=== PATIENT | male | born 1955 | race Caucasian/White ===

== ENCOUNTER 2023-12-05 09:30 | Outpatient (AMB) | payer MEDICARE, OTHER, SELFPAY ==
--- NOTE | 2023-12-05 10:20 | MHC.OFFVIS ---
Intake Vital Signs 12/05/23 10:23 Height 5 ft 8 in Weight 154 lb 5.177 oz BMI 23.5 BP 132/68 Blood Pressure Location Lt brachial Position Sitting Pulse 42 L Intake Visit Reasons: CREW BOSS/ Rastigar/ abn stress test Intake Note: NPV w/ EKG Auto Damage Appraiser Required: No Accompanied by: Spouse Allergies No Known Allergies Allergy (Verified 12/05/23 10:24) Medication List - Last Reconciled 12/05/23 by Eron Lu MD No Known Home Meds HPI HPI Comments History of Present Illness Details Jose A is here for consultation regarding chest pain. He does not have any known coronary disease or myocardial infarction or cardiomyopathy. He is extremely active at baseline including a lot of hiking mountains extra. On lot of these occasions, he has had chest pain that feels like a pressure. It does not however happen every single time. He recently had a stress test and exercised for about 11 minutes. He did not have any anginal-type symptoms but there was concern for ST depression. Hence he has been referred here. Otherwise, generally healthy at baseline with no limitations whatsoever. History of cocaine use many decades ago but nothing recent. [facility] Surgical History (Updated 12/05/23 @ 10:24 by Gaby Watson) Hx of total knee replacement Family History (Updated 12/05/23 @ 10:47 by Eron Lu MD) Mother Heart problem Father Heart problem Hx of CABG Social History (Updated 12/05/23 @ 10:25 by Gaby Watson) Alcohol intake: former Patient Tobacco Use Status: Former Tobacco user Review of Systems Const Denies chills, Denies daytime sleepiness, Denies fatigue, Denies fever(s), Denies frequent falls, Denies night sweats, Denies snoring, Denies weakness, Denies weight gain and Denies weight loss Eyes Denies loss of vision ENT Denies dizziness and Denies hearing loss Card Denies chest pain, Denies chest pain with activity, Denies syncope, Denies rapid heart rate, Denies edema, Denies claudication, Denies leg edema, Denies lightheadedness, Denies palpitations, Denies dyspnea, Denies dyspnea on exertion and Denies orthopnea Resp Denies cough, Denies excessive phlegm production, Denies dyspnea, Denies dyspnea on exertion, Denies snoring and Denies wheezing GI Denies abdominal pain, Denies hematochezia, Denies change in bowel habits, Denies change in stool character, Denies heartburn, Denies nausea and Denies vomiting Denies hematuria, Denies dysuria and Denies urinary frequency Musc Denies arthralgias, Denies muscle weakness, Denies numbness and Denies tingling Skin/Breast Denies nail changes and Denies rash Neuro Denies Abnormal speech present, Denies dizziness, Denies syncope, Denies frequent falls, Denies loss of vision, Denies memory loss, Denies numbness, Denies tingling and Denies weakness Psych Denies depression and Denies memory loss Endo Denies fatigue and Denies palpitations Aller/Immun Denies wheezing Physical Exam Vital Signs: Last Vital Signs Pulse 42 L 12/05/23 10:23 BP 132/68 12/05/23 10:23 BMI result Body Mass Index 23.5 Const General: comfortable and no acute distress Orientation/consciousness: patient oriented x3 HEENT Other: Unremarkable Head: Yes normal to inspection Neck Neck: Yes normal visual inspection Chest Chest palpation & inspection: normal inspection of the chest Resp Auscultation: clear to auscultation bilaterally Cardio Palpation: normal PMI Heart sounds: S1 normal heart sound present, S2 normal heart sound present, no gallops, no murmurs and no rubs GI Palpation (GI): Soft to palpation Back/Spine/Pelvis Other: unremarkable Skin General skin exam: no rashes or lesions noted Neuro General: patient oriented x3 Speech: No Abnormal speech present Extrem General: Yes normal to inspection Psych Mental Status: mental status grossly normal Office Procedures EKG Details: EKG with sinus bradycardia at 42/Min; can not exclude old anterior infarct but could be from body habitus and lead placement[place]. [address]-[id number], Complete Assessment & Plan Assessment & Plan (1) Precordial chest pain: Code(s): R07.2 - Precordial pain (2) Abnormal stress test: Code(s): R94.39 - Abnormal result of other cardiovascular function study Plan Baseline EKG shows sinus bradycardia which could be related to high levels of baseline physical activity. In the exercise stress test, he was able to do 11 minutes on Daniel protocol and reached 13.4 Mets. He was able to reach 100% of max predicted heart rate. No chest pain. Concern for horizontal to upsloping ST depression thought to be suggestive of ischemia. We discussed the findings above. Recommend proceeding with coronary CTA for further evaluation. Echocardiogram for cardiac function assessment. Advised to cut back on physical activity, especially strenuous hiking for the time being. Follow-up after the above. Discussed with significant other who came for appointment and they agree with the plan. Orders: Orders CT Cardiac Coronary Angio Today I25.10 - Atherosclerotic heart disease of [place] coronary artery without angina pectoris, R94.39 - Abnormal result of other cardiovascular function study CA echo transthoracic complete Today R07.2 - Precordial pain, R94.39 - Abnormal result of other cardiovascular function study Basic Metabolic Panel Today R07.2 - Precordial pain Coding Level of Care Code New Pt Level 4 (38185) Diagnoses Precordial chest pain R07.2 Abnormal stress test R94.39 CPT Codes EKG - CPT: 72820-[id number], Complete ([id number])
[2023-12-05 10:23] VITALS: BP 132/68; PULSE 42; BMI 23.5
== END 2023-12-05 10:57 | disposition home or self-care (01) ==
PROVIDERS: Visit Provider Internal Medicine
DX: R07.2 Precordial pain (principal); R94.39 Abnormal result of other cardiovascular function study
CPT/HCPCS: 93010; 99204

== ENCOUNTER → 2023-12-05 09:30 | Outpatient (BNVA) | payer MEDICARE, OTHER, SELFPAY | PROVIDERS: Visit Provider Internal Medicine | DX: R07.2 Precordial pain (principal); R94.39 Abnormal result of other cardiovascular function study | CPT/HCPCS: 93005; 99202 ==

== ENCOUNTER → 2023-12-25 13:29 | Outpatient (REF) | payer MEDICARE, OTHER, SELFPAY ==
--- NOTE | 2023-12-25 13:34 | CA_ITS ---
Transthoracic Echocardiogram Patient (Last, First, Middle): Jose A Negron E Gender: Male Date of : 1955 Age: 68 Procedure Date: 12/25/2023 Procedure Type: Transthoracic Echocardiogram Location: OP Height: 172.72 cm Weight: 65.77 kg BSA: 1.78 m2 Heart Rate: bpm BP: 116 / 60 mmHg Wood Crafter: Referring MD: Eron Lu MD City Plant Supervisor: Gama Cervantes MD Symptoms: R94.39 - Abnormal result of other cardiovascular function study Study Quality: Good ECG Rhythm: Sinus Conclusions: - 1. Normal LV ejection fraction of 60 65% with normal diastolic filling pattern 2. Slightly increased gradient across aortic valve with early mild aortic stenosis 3. Normal RV systolic pressure 4. No pericardial effusion Findings Left Ventricle Normal left ventricular size, thickness, and systolic function. The visually estimated ejection fraction is between 60-65%. Spectral Doppler is indicative of a normal filling pattern. E/E prime ratio is <8, consistent with normal filling pressures. Right Ventricle Normal right ventricular cavity size and systolic function. Atria Both atria are normal in size. There is no evidence of interatrial shunt. Aortic Valve Normal aortic valve structure and function. There is mild thickening of the aortic valve. There is no aortic valve stenosis. There is no aortic valve regurgitation. Mitral Valve There is mild anterior and posterior mitral leaflet thickening. There is trace mitral valve regurgitation. There is no mitral valve stenosis. Pulmonic Valve The pulmonic valve is likely normal. There is trace pulmonic valve regurgitation. Tricuspid Valve Normal tricuspid valve structure. There is trace tricuspid valve regurgitation. The right ventricular systolic pressure is normal. The right ventricular systolic pressure is 19 mmHg. Normal right atrial pressure. There is no evidence of pulmonary hypertension. Great Vessels The pulmonary artery was not well visualized. There is no dilatation of the ascending aorta measuring 3.20 cm. Venous The inferior vena cava is normal in size and collapses greater than 50% with inspiration. Pericardium/Pleural There is no evidence of pericardial effusion. Prior Study Comparison No prior study available for comparison. Measurements 2D Linear Measurements IVSd: 0.79 0.6-0.9/0.6-1.0 cm LVIDd: 4.45 3.9-5.3/4.2-5.9 cm LVIDd Index: 2.50 2.4-3.2/2.2-3.1 cm/m2 LVIDs: 2.87 2.0-3.6 cm LVPWd: 1.00 0.7-1.1 cm Ao Root: 2.90 2.1-3.5 cm LA Diam: 3.40 2.7-3.8/3.0-4.0 cm LAIDs Index: 1.91 1.5-2.3 cm/m2 LV Mass: 161.29 67-162/88-224 g LV Mass Index: 90.61 43-95/49-115 g/m2 LVOT Diam: 2.10 3.0+(-)1.3 cm Mitral Valve MV Pk E: 0.74 MV PK A: 0.56 MV Decel Time: 270.00 E/A: 1.30 E'Lateral: 14.90 E'Medial: 8.16 E/E' Med: 9.10 E/E' Lat: 5.00 PHT: 79.00 MVA PHT: 2.78 Decel Quay: 2.74 Aortic Valve AoV Pk Cristian: 1.88 AoV Mn Cristian: 1.06 AoV VTI: 0.43 AoV Pk Grad: 14.00 Aov Mn Grad: 6.00 TITO Cont.VTI: 2.28 LVOT LVOT Pk Cristian: 1.23 LVOT Mn Cristian: 0.80 LVOT VTI: 0.28 LVOT Pk Grad: 6.00 LVOT Mn Grad: 3.00 LVOT Diam: 2.10 LVOT Area: 3.46 Diastolic Function MV Pk E: 0.74 MV Pk A: 0.56 E/A: 1.30 E'Medial: 8.16 E/E' Med: 9.10 E' Laterial: 14.90 E/E' Lat: 5.00 Right Ventricle TAPSE (mm): 33.00 TVS' Cristian: 13.00 Tricuspid Valve TR Pk Cristian: 2.00 TR Pk Grad: 16.00 RA Press: 3.00 RVSP: 19.00 Great Vessels Aorta Ao Root-2D: 2.90 2.0-3.7 cm Ao Asc: 3.20 2.1-3.4 cm Pulmonary Valve PV Pk Cristain: 1.30 Peak PV Grad: 7.00 Updated in Other Vendor System with Status of Final Gama Cervantes MD electronically signed on 12/25/2023 3:34:59 PM with status of Final
== END ==
LOC: HO.CARD 13:29
PROVIDERS: Visit Provider Internal Medicine
DX: R07.2 Precordial pain (principal); R94.39 Abnormal result of other cardiovascular function study
CPT/HCPCS: 93306

== ENCOUNTER → 2023-12-25 13:34 | Outpatient (BNV) | payer MEDICARE, OTHER, SELFPAY | PROVIDERS: Visit Provider Internal Medicine Cardiovascular Disease | DX: I35.0 Nonrheumatic aortic (valve) stenosis (principal) | CPT/HCPCS: 93306 ==

== ENCOUNTER 2024-03-30 13:11 | Outpatient (AMB) | payer MEDICARE, OTHER, SELFPAY ==
[2024-03-30 13:23] VITALS: BP 122/62; PULSE 48; BMI 22.8
--- NOTE | 2024-03-30 13:23 | MHC.OFFVIS ---
Vital Signs 03/30/24 13:23 Height 5 ft 8 in Weight 149 lb 14.629 oz BMI 22.8 BP 122/62 Blood Pressure Location Lt brachial Position Sitting Pulse 48 L Pulse Source Pulse Oximeter Intake Visit Reasons: F/up CTA/ECHO Allergies No Known Allergies Allergy (Verified 12/05/23 10:24) Medication List - Last Reconciled 03/30/24 by Eron Lu MD No Known Home Meds HPI Comments Details: Jose A returns for follow-up. Recently seen in consultation regarding chest pain. No known cardiac issues. Extremely active at baseline with lot of hiking, climbing mountains extra. During these times, he has felt some chest pain and that led to further workup. He has completed a stress test as well as coronary CTA. No new concerns. He states feels good. Otherwise, generally healthy at baseline with no limitations whatsoever. History of cocaine use many decades ago but nothing recent. [facility] Surgical History (Updated 12/05/23 @ 10:24 by Gaby Watson) Hx of total knee replacement Family History (Updated 12/05/23 @ 10:47 by Eron Lu MD) Mother Heart problem Father Heart problem Hx of CABG Social History (Updated 12/05/23 @ 10:25 by Gaby Watson) Alcohol intake: former Patient Tobacco Use Status: Former Tobacco user Review of Systems Const Denies weakness ENT Denies dizziness Card Denies chest pain, Denies chest pain with activity, Denies syncope, Denies rapid heart rate, Denies pedal edema, Denies edema, Denies leg edema, Denies lightheadedness, Denies palpitations, Denies dyspnea, Denies dyspnea on exertion and Denies orthopnea Resp Denies cough, Denies dyspnea and Denies dyspnea on exertion GI Denies hematochezia and Denies change in stool character Musc Denies abnormal gait, Denies muscle cramps, Denies muscle weakness, Denies numbness, Denies radiating pain into limb and Denies tingling Neuro Denies abnormal gait, Denies dizziness, Denies syncope, Denies numbness, Denies tingling and Denies weakness Endo Denies palpitations Physical Exam Vital Signs: Last Vital Signs Pulse 48 L 03/30/24 13:23 BP 122/62 03/30/24 13:23 BMI result Body Mass Index 22.8 Const General: comfortable and no acute distress Orientation/consciousness: patient oriented x3 HEENT Other: Unremarkable Head: Yes normal to inspection Neck Neck: Yes normal visual inspection Chest Chest palpation & inspection: normal inspection of the chest Resp Auscultation: clear to auscultation bilaterally Cardio Palpation: normal PMI Heart sounds: S1 normal heart sound present, S2 normal heart sound present, no gallops, no murmurs and no rubs GI Palpation (GI): Soft to palpation Back/Spine/Pelvis Other: unremarkable Skin General skin exam: no rashes or lesions noted Neuro General: patient oriented x3 Extrem General: Yes normal to inspection Psych Mental Status: mental status grossly normal Assessment & Plan Assessment & Plan (1) Precordial chest pain: Code(s): R07.2 - Precordial pain Category: Medical (2) Abnormal stress test: Code(s): R94.39 - Abnormal result of other cardiovascular function study Category: Medical Plan Cardiac studies reviewed. Baseline EKG shows sinus bradycardia which could be related to high levels of baseline physical activity. In the exercise stress test, he was able to do 11 minutes on Daniel protocol and reached 13.4 Mets. He was able to reach 100% of max predicted heart rate. No chest pain. Concern for horizontal to upsloping ST depression thought to be suggestive of ischemia. In the echocardiogram, LVEF 60-65%. Gradients across aortic valve elevated and thought to reflect early stenosis but he also has a high stroke volume because of bradycardia- hence elevated gradients are most likely from high stroke volumes. In the coronary CTA, calcium score is 0. Possible mild stenosis and circumflex versus artifactual finding. Distal LAD/1st diagonal limited by artifact but suspected patent. There is a question of thymic cyst versus pericardial cyst. Recommendation was to consider getting a chest MRI. Also, small lung nodule noted. Overall, based on the above, chest pain during hiking are highly unlikely to be cardiac in nature. We discussed the findings in great detail with patient and significant other. They understand. Hence no further workup from coronary standpoint. With regard to the question of thymic/pericardial cyst, we discussed about getting an MRI but then decided hold off for now. Even if these are present, unlikely that they causing any significant clinical issues. If necessary, can consider in the future. With regard to the lung nodule, they will discuss with primary care regarding a possible repeat CT in 1 year. Total time spent including review of data, counseling, documentation, coordination of care-32 minutes. Coding Level of Care Code Est Pt Level 4 (48248) Diagnoses Precordial chest pain R07.2 Abnormal stress test R94.39
== END 2024-03-30 13:50 | disposition home or self-care (01) ==
PROVIDERS: Visit Provider Internal Medicine
DX: R07.2 Precordial pain (principal); R94.39 Abnormal result of other cardiovascular function study
CPT/HCPCS: 99214

== ENCOUNTER → 2024-03-30 13:11 | Outpatient (BNVA) | payer MEDICARE, OTHER, SELFPAY | PROVIDERS: Visit Provider Internal Medicine | DX: R94.39 Abnormal result of other cardiovascular function study (principal); R07.2 Precordial pain | CPT/HCPCS: 99212 ==

== ENCOUNTER 2025-03-31 12:34 | Outpatient (AMB) | payer MEDICARE, OTHER, SELFPAY ==
--- OUTSIDE RECORDS SUMMARY | 2025-03-28 23:59 | XMS_ITS | Continuity of Care Document ---
Author Organization [facility] [place] [address] Address [address] [place] [id number]- Care Team Providers Care Customer Care Associate Name Role Phone Not on Staff, PCP Primary Care Physician Unavail able Encounter 03/27/25 - 03/28/[address] [id number] Attending Physician: Not on Staff, Attending MD Referring Physician: Not on Staff, Referring MD Encounter Type: [facility] Allergies, Adverse Reactions, Alerts No Known Allergies Immunizations Given and Recorded Vaccine Date Status Refusal Reason tetanus-diphtheria toxoids (Td) 11/06/22 Given pneumococcal 20-valent conjugate vaccine 11/06/22 Given influenza virus vaccine, inactivated 11/01/20 Give n influenza virus vaccine, inactivated 10/09/18 Give n influenza virus vaccine, inactivated 10/05/16 Give n influenza virus vaccine, inactivated 09/13/14 Vahid rded Influenza Virus Vaccine (oldterm) 05/27/19 Recorde d zoster vaccine, inactivated 04/21/19 Recorded zoster vaccine, inactivated 01/22/19 Recorded tetanus/diphtheria/pertussis, acel(Tdap) 09/13/12 Recorded tetanus/diphtheria/pertussis, acel(Tdap) 1 12/05/11 Given Hepatitis A Adult Vaccine 06/13/11 Recorded Hepatitis A Adult Vaccine 12/12/10 Recorded pneumococcal 23-valent vaccine 07/14/10 Recorded 1Admin Note: [id number] given today. Medications amoxicillin 500 mg oral capsule 4 capsule = 2,000 mg, By Mouth, Every 24 hours, 0 Refills, Maintenance, 11/06/22 10:33:00 AM EST, Capsule, Partial fill upon patient request if the prescription is for a schedule II opioid drug. Start Date: 11/06/22 Status: Ordered Repeat number: 1 CeleBREX 200 mg oral capsule 1 capsule = 200 mg, By Mouth, Daily, # 30 capsule, 0 Refills, Maintenance, 07/31/22 6:48:00 AM EST,Capsule, Partial fill upon patient request if the prescription is for a schedule II opioid drug. Start Date: 07/31/22 Status: Ordered Quantity: 30.0 Unit: capsule Repeat number: 1 ketoconazole 2% topical cream 1 application, Topically, Daily, # 60 Gm, 5 Refills, Maintenance, 11/03/21 10:36:00 AM EST, Cream, [facility]/pharmacy #[id number], 1 application Topically Daily, 175, cm, 11/03/21 10:22:00 EST, Height Start Date: 11/03/21 Status: Ordered Quantity: 60.0 Unit: g Repeat number: 6 Viagra 50 mg oral tablet 1 tablet = 50 mg, By Mouth, Daily, 1 hour before sexual activity, # 30 tablet, 11 Refills, Maintenance, 11/06/22 10:29:00 AM EST, Tablet, [facility]/pharmacy #[id number], 175, cm, 11/06/22 10:13:00 EST, Height, 67.8, kg, 07/31/22 6:10:00 EST, Dry Weight Start Date: 11/06/22 Status: Ordered Quantity: 30.0 Unit: tablet Repeat number: 12 Vitamin B-12 100 mcg oral tablet 100 mcg, 1, tablet, By Mouth, Daily, Refills 0, Maintenance, 11/13/17 8:45:35 AM EDT Start Date: 11/13/17 Status: Ordered Repeat number: 1 Problem List Condition Confirmation Course Effective Dates Status Health Status Informant Benign hematuria Confirmed Active ED (erectile dysfunction) Confirmed Active Hepatitis B immune Confirmed Active Hiatal hernia Confirmed Active H/O colonoscopy 1 Confirmed Active History of left knee replacement Confirmed Active Intention tremor Confirmed Active OA (osteoarthritis) of knee Confirmed Active Left knee pain Confirmed Active H/O esophagogastroduodenoscopy 2 Confirmed Active Elevated PSA Confirmed Active Rhinitis Confirmed Active Sinus bradycardia Confirmed Active 1Colonoscopy 2009 normal, repeat 2019. 2E2009 negative barretts Results Radiology Reports * Exam Date Time Procedure Performing Provider Status 03/27/25 11:02 AM MR Prostate W+W/O Co ntrast 3D Reformat Auth (Verified) Notes: (MR Prostate W+W/O Contrast 3D Reformat) Reason For Exam: Elevated prostate specific antigen [PSA];Elevated prostate specific antigen [PSA] RESULT: MR Prostate W+W/O Contrast 3D Reformat [facility] VISIT NUMBER :[id number] Patient Name: Matthew Negron Date of : 1955 Date of Exam: 03-27-2025 Referring Physician: Alexey Mendoza [facility] [address] [place] [id number] Exam: MR Prostate (C-/C+) with 3D reformat CPT 80292, 84992 Room Description: [facility] 3T MRI MR Prostate (C-/C+) with 3D reformat CPT 76633, 78629 REASON FOR EXAM: Male aged 69 years diagnosed with elevated PSA. Prostate biopsy date and results: No prior biopsy results available. Most recent PSA: 4.5 TECHNIQUE: Noncontrast and contrast-enhanced multiparametric MRI of the prostate gland was performed utilizing a body matrix coil and PROSTATE PROTOCOL. Dynamic pre- and postcontrast imaging was utilized. 7 cc of intravenous Elucirem contrast was administered. High resolution axial, sagittal, and coronal FSE T2, axial FSE T1, axial DWI, axial pre and multiphase dynamic postcontrast 3D FSPGR T1 pulse sequences were performed. Postprocessing on an independent workstation included creation of a 3D rotational prostate segmentation volume analysis, 3D lesion analysis, subtraction images, multiplanar reformatted images, wash-in and wash-out maps as well as computer aided detection (CAD) DynaCAD software. Findings are reported using Prostate Imaging Reporting and Data System (PI-RADS) version 2.1. COMPARISON: None available. FINDINGS: The prostate is normal in size and measures 4.5 x 3.4 x 3.1 cm. 3D processing calculated prostate volume is 26.2 cc. PERIPHERAL ZONE: There are no areas of T1 hyperintensity to suggest the presence of hemorrhage. Peripheral zone lesion #1: * Size: 1.9 x 1.3 x 2.1 cm. * Location: Right posterolateral portion of the peripheral zone at the base, mid gland, and apex, zone 2p/4p/6p (series 4 images 20). * Diffusion: Diffusion characteristics are described as focal markedly hypointense on ADC and hyperintense on high b-value DWI, 1.5 cm in greatest dimension correlating with a DWI-ADC score of 5. * T2-Weighted: Well-defined, homogenous moderately hypointense focus or mass confined to prostate and correlating with a T2W score of 5. * Perfusion: Positive dynamic contrast enhancement corresponding to suspicious findings on T2 and/or DWI-ADC. * Shortest distance from urethra: 0 cm. * Shortest distance from prostatic capsule: 0 cm. * Capsule: Broad capsular abutment with slight irregularity along the posterolateral mid gland and apex raising concern for early extraglandular disease (4:19, 20). * Overall suspicion: Category 5: Very High (Clinically significant cancer is highly likely to be present). TRANSITION ZONE: The transition zone is heterogeneous indicating benign prostatic hyperplasia. PROSTATE CAPSULE: Slight irregularity of the posterolateral gland margin of the mid gland and apex raises concern for early extraglandular disease. SEMINAL VESICLES: The seminal vesicles are normal. LYMPH NODES: No enlarged pelvic or inguinal lymph nodes. VESSELS: Major pelvic vessels demonstrate normal enhancement. URINARY BLADDER: Trabeculated urinary bladder wall, otherwise unremarkable. PELVIS: No free fluid. COLON AND RECTUM: Moderate stool burden throughout the colon. BONES: No suspicious osseous lesion. ADDITIONAL FINDINGS: None. IMPRESSION: 1. 2.1 cm right posterolateral peripheral zone lesion spanning the base to apex, with slight irregularity at the gland margin that may indicate early extraglandular disease. PI-RADS v2.1 Category 5: Very High (Clinically significant cancer is highly likely to be present). 2. No evidence of adenopathy or seminal vesicle invasion. No suspicious osseous lesion. 3. 3D processing calculated prostate volume is 26.2 cc. REFERENCE: PI-RADS Version 2.1 Assessment Categories: Category 1: Very low - Clinically significant cancer is highly unlikely. Category 2: Low - Clinically significant cancer is unlikely. Category 3: Intermediate - Clinically significant cancer is equivocal. Category 4: High - Clinically significant cancer is likely. Category 5: Very High - Clinically significant cancer is highly likely. PI-RADS Version 2.1 Definition of Clinically Significant Cancer: Tumor with a [place] score of 7 or more (either 4 + 3 or 3 + 4 with a prominent [place] 4 com?ponent) and/or volume greater than 0.5 cm3 and/or extraprostatic extension. Electronically Signed By: Luis May MD Dictated By: Not on Staff , OMAR OLVERA Dictated Date/Time: 03/27/25 4:05 pm Reviewed By: Not on Staff , OMAR OLVERA Signed By: Not on Staff , OMAR OLVERA Signed Date/Time: 03/27/25 4:05 pm Transcribed By: TS Transcribed Date/Time: 03/27/25 4:05 pm Social History Social History Type Response Smoking Status Former smoker; Other : Quit smoking age 41; entered on: 10/05/16 Sex Sex Representation Male (finding) Patient Care team information Care Team Personnel Name: Not on Staff, PCP Position: [facility] Physician (General Medicine) Member Role: PCP Name: Gemma Pierre RN Position: S RN Member Role: Primary Care Nurse Care Team Related Persons Name: KAMINICRISTIANA EDWARDS Insurance Providers Guarantor name: MATTHEW NEGRON [facility] [facility] Information #: 1 Payer: MEDICARE B Payer Identifier: MICHELLE Member Number: [id number] Group Number: MICHELLE Subscriber Identifier: [id number] Relationship to Subscriber: self Coverage Type: NA Coverage Verification Date: NA Telecom: NA Address: Health Plan Information #: 2 Payer: [facility] [employer] Payer Identifier: MICHELLE Member Number: [id number] Group Number: [id number] Subscriber Identifier: [id number] Relationship to Subscriber: spouse Coverage Type: Commercial Indemnity Coverage Verification Date: Telecom: Address:
--- NOTE | 2025-03-31 12:54 | MHC.OFFVIS ---
Vital Signs 03/31/25 12:56 Height 5 ft 8 in Weight 148 lb BMI 22.5 BP 126/60 Blood Pressure Location Lt brachial Position Sitting Pulse 51 Pulse Source Monitor Intake Visit Reasons: 1 yr f/up Allergies No Known Allergies Allergy (Verified 12/05/23 10:24) Medication List - Last Reconciled 03/31/25 by Eron Lu MD No Known Home Meds HPI Comments Details: Jose A returns for follow-up. Last year, seen in consultation regarding chest pain. No known cardiac issues. Extremely active at baseline with lot of hiking, climbing mountains extra. During these times, he has felt some chest pain and that led to further workup. He has completed a stress test as well as coronary CTA. Apparently, he has been diagnosed with prostate cancer and he is clearly disappointed with that. Otherwise, from the cardiac standpoint, no clear-cut symptoms. Continues to do a lot of intense hiking with no cardiac symptoms. [facility] Surgical History (Updated 12/05/23 @ 10:24 by Gaby Watson) Hx of total knee replacement Family History (Updated 12/05/23 @ 10:47 by Eron Lu MD) Mother Heart problem Father Heart problem Hx of CABG Social History (Updated 12/05/23 @ 10:25 by Gaby Watson) Alcohol intake: former Patient Tobacco Use Status: Former Tobacco user Review of Systems Const Denies weakness ENT Denies dizziness Card Denies chest pain, Denies chest pain with activity, Denies syncope, Denies rapid heart rate, Denies pedal edema, Denies edema, Denies leg edema, Denies lightheadedness, Denies palpitations, Denies dyspnea, Denies dyspnea on exertion and Denies orthopnea Resp Denies cough, Denies dyspnea and Denies dyspnea on exertion GI Denies hematochezia and Denies change in stool character Musc Denies abnormal gait, Denies muscle cramps, Denies muscle weakness, Denies numbness, Denies radiating pain into limb and Denies tingling Neuro Denies abnormal gait, Denies dizziness, Denies syncope, Denies numbness, Denies tingling and Denies weakness Endo Denies palpitations Physical Exam Vital Signs: Last Vital Signs Pulse 51 03/31/25 12:56 BP 126/60 03/31/25 12:56 BMI result Body Mass Index 22.5 Const General: comfortable and no acute distress Orientation/consciousness: patient oriented x3 HEENT Other: Unremarkable Head: Yes normal to inspection Neck Neck: Yes normal visual inspection Chest Chest palpation & inspection: normal inspection of the chest Resp Auscultation: clear to auscultation bilaterally Cardio Palpation: normal PMI Heart sounds: S1 normal heart sound present, S2 normal heart sound present, no gallops, no murmurs and no rubs GI Palpation (GI): Soft to palpation Back/Spine/Pelvis Other: unremarkable Skin General skin exam: no rashes or lesions noted Neuro General: patient oriented x3 Extrem General: Yes normal to inspection Psych Mental Status: mental status grossly normal Office Procedures EKG Details: EKG with underlying sinus bradycardia at 51/Min; cannot exclude old anterior infarct; [place] [address]-Mjyfrrnlwyweuneld, Complete Assessment & Plan Assessment & Plan (1) Precordial chest pain: Code(s): R07.2 - Precordial pain Category: Medical (2) Abnormal stress test: Code(s): R94.39 - Abnormal result of other cardiovascular function study Category: Medical Plan Cardiac studies reviewed. Baseline EKG shows sinus bradycardia which could be related to high levels of baseline physical activity. In the exercise stress test, he was able to do 11 minutes on Daniel protocol and reached 13.4 Mets. He was able to reach 100% of max predicted heart rate. No chest pain. Concern for horizontal to upsloping ST depression thought to be suggestive of ischemia. In the echocardiogram, LVEF 60-65%. Gradients across aortic valve elevated and thought to reflect early stenosis but he also has a high stroke volume because of bradycardia- hence elevated gradients are most likely from high stroke volumes. In the coronary CTA, calcium score is 0. Possible mild stenosis in circumflex versus artifactual finding. Distal LAD/1st diagonal limited by artifact but suspected patent. There is a question of thymic cyst versus pericardial cyst. Recommendation was to consider getting a chest MRI. Also, small lung nodule noted. Overall, based on the above, chest pain itself is noncardiac in nature. Additionally, he has not had any recent pains and hence no further coronary workup required. With regard to the question of thymic/pericardial cyst, recommendation was to get an MRI. Discussed about that again and he is willing to proceed. Hence MRI ordered. With regard to the lung nodule, advised follow up with PCP for recommendations. 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
[2025-03-31 12:56] VITALS: BP 126/60; PULSE 51; BMI 22.5
--- OUTSIDE RECORDS SUMMARY | 2025-03-31 13:08 | XMS_ITS | Continuity of Care Document ---
Author Name [facility] Organization [facility] Care Team Providers Care Staffing Clerk Name Role Phone [facility] Unavailable Unavailable Problems Combined list of problems from Department of Defense and Veterans Affairs facilities. It does not include entries that were removed or entered in error. Problem Status Onset Date Problem Type Date of Resolution Comments Source CHEST PAIN NOS Active Condition [facility] DEPRESSIVE DISORDER NEC Active Condition [facility] Gastroesophageal Reflux Disorder * (ICD-9-CM 530.81) Active Condition [facility] Hearing loss * (ICD-9-CM 389.9) Active Condition [facility] hepatitis c Active Condition [facility] Hepatitis C without mention of hepatic coma (ICD-9-CM 070.51) Active Condition [facility] methadone maintanance Active Condition [facility] Presbyopia * (ICD-9-CM 367.4) Active Condition [facility] Viral hepatitis B without mention of hepatic coma, without mention of hepatitis Active Condition [facility] Immunizations Combined list of available immunizations from the Department of Defense and Veterans Affairs facilities. Immunization Series Date Given Administered By Site Reaction Lot Number CVX Code Drug Tool Straightener Status Comments Source FLU,3 YRS (HISTORICAL) 2000 BLOSSOM NGUYEN 88 complet ed [facility] INFLUENZA, UNSPECIFIED FORMULATION 1996 BHARAT MENDOZA 88 complet ed [facility] INFLUENZA, UNSPECIFIED FORMULATION 1995 ENRIQUE BUCKNER 88 comple t ed [facility] Social History Combined list of available smoking, tobacco, and other social history from Department of Defense and Veterans Affairs facilities. Social History Type Response Date Comment Source Tobacco smoking status [facility] HISTORY OF SMOKING 09/27/2003 quit 8 years ago [facility] [place] [facility] History of tobacco use QUIT TOBACCO USE > 7 YEARS AGO 09/27/2003 quit 8 years [facility] [place] [facility] History of tobacco use NON-TOBACCO USER 07/29/2001 quit 7 years ago [facility] [place] [facility] History of tobacco use HISTORY OF SMOKING 05/27/2001 not smoked in past 5years [place] This section is an empty social history section. DoD
--- OUTSIDE RECORDS SUMMARY | 2025-03-31 13:10 | XMS_ITS ---
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 01/10/2024 Care Team Organization Name Specialty Phone Email Start Date End Da te [employer] [facility] [employer] Systems Adminstrator 01/13/2024 11/18/2024 [employer] PROVIDER SYSTEM Primary Care 12/10/2023
--- OUTSIDE RECORDS SUMMARY | 2025-03-31 13:10 | XMS_ITS | Clinical Summary ---
Author Organization [facility] Address [address] [place] [address] Care Team Providers Care Melt House Drag Operator Name Role Phone System, Provider Not In Primary Care Provider Un available Allergies No known active allergies Medications No known medications Social History Tobacco Use Types Packs/Day Years Used Date Smoking Tobacco: Never Assessed Sex and Gender Information Value Date Recorded Sex Assigned at Male 12/10/2023 12:01 PM EDT Legal Sex Male 9:23 AM EDT Gender Identity Male 12/10/2023 12:01 PM EDT Sexual Orientation Heterosexual (straight) 12/09 12:01 PM EDT Last Filed Vital Signs Vital Sign Reading Time Taken Comments Blood Pressure 159/74 01/24/2024 7:11 AM EDT Pulse 45 01/24/2024 7:11 AM EDT Temperature - - Respiratory Rate 18 01/24/2024 7:11 AM EDT Oxygen Saturation 100% 01/24/2024 7:11 AM EDT Inhaled Oxygen Concentration - - Weight - - Height - - Body Mass Index - - Plan of Treatment Health Maintenance Due Date Last Done Comments Hepatitis C Virus Screening 1956 DTaP/Tdap/Td Vaccines (1 - Tdap) 1975 Colonoscopy 2001 Pneumococcal Vaccines 50+ (1 of 1 - PCV) 2006 Zoster (Shingles) Vaccine (1 of 2) 2006 COVID-19 Vaccine ( - 2023-2 5 season) 2024 Influenza Vaccine 04/02/2025 RSV Vaccine 60 years and old er and Patients (1 - 1-dose 75+ series) 2031 Hepatitis B Vaccines Aged Out No long er eligible based on patient's age to complete this topic Insurance MEDICARE PART A & B [facility] Care Teams Melt House Drag Operator Relationship Specialty Start Date End Date System, Provider Not In PCP - General 12/10/23
--- OUTSIDE RECORDS SUMMARY | 2025-03-31 13:10 | XMS_ITS | Clinical Summary ---
Author Organization [facility] Address [address] [place] [id number] Phone Care Team Providers Care Cdl Dedicated Truck Driver Name Role Phone Gordon Roldan Primary Care Provider [phone] Encounters Date Type Department Care Team Description 02/24/2025 3:00 PM EDT - 02/24/2025 11:59 PM EDT Hospital Encounter [facility] Laboratory [address] [place] [address] Dominick Jones PA Discharge Disposition: Home or Self Care 02/24/2025 Transcribe Orders [facility] Laboratory [address] [place] [address] Dominick Jones PA Acute dermatitis (Primary Dx) from Last 3 Months Social History Tobacco Use Types Packs/Day Years Used Date Smoking Tobacco: Never Assessed Education Answer Date Recorded Are you interested in more education? Not on erika e 11/15/2023 Are you concerned about learning? Not on file 11/15/2023 No 11/15/2023 No 11/15/2023 Digital Access Answer Date Recorded No 11/15/2023 No 11/15/2023 Reliable internet access at home? Not on file 11/15/2023 Device with a working camera? Not on file Sex and Gender Information Value Date Recorded Sex Assigned at Not on file Legal Sex Male 10:35 PM EDT Gender Identity Not on file Sexual Orientation Not on file Last Filed Vital Signs Vital Sign Reading Time Taken Comments Blood Pressure 120/64 11/25/2023 10:27 AM EDT Pulse - - Temperature - - Respiratory Rate - - Oxygen Saturation - - Inhaled Oxygen Concentration - - Weight - - Height - - Body Mass Index - - Plan of Treatment Not on file Medical Devices Not on file Procedures Procedure Name Priority Date/Time Associated Diagnosis Comments ALANINE AMINOTRANSFERASE (ALT) Routine 02/24/2025 3:26 PM EDT Acute dermatitis ASPARTATE AMINOTRANSFERASE (AST) Routine 02/24/2025 3:26 PM EDT Acute dermatitis from Last 3 Months Results * Alanine aminotransferase (ALT) (02/24/2025 3:26 PM EDT) ALT 24 0 - 40 U/L [facility] Blood 02/24/2025 3:26 PM EDT 02/24/2025 3:36 PM EDT Dominick OSHEA LAB BLOOD ORDERABLE S Final Result Performing Organization Address [facility]/ZIP Co de Phone Number [address] [address] * Aspartate aminotransferase (AST) (02/24/2025 3:26 PM EDT) AST 27 0 - 37 U/L [facility] Blood 02/24/2025 3:26 PM EDT 02/24/2025 3:36 PM EDT Dominick OSHEA LAB BLOOD ORDERABLE S Final Result Performing Organization Address [facility]/ZIP Co de Phone Number [address] [address] from Last 3 Months Insurance MEDICARE PART A & B [facility] MEDICARE SUPPLEMENT MEDICARE PART A & B [facility] MEDICARE SUPPLEMENT MEDICARE PART A & B [facility] MEDICARE SUPPLEMENT MEDICARE PART A & B [facility] MEDICARE SUPPLEMENT MEDICARE PART A & B [facility] MEDICARE SUPPLEMENT MEDICARE PART A & B [facility] MEDICARE SUPPLEMENT Care Teams Cdl Dedicated Truck Driver Relationship Specialty Start Date End Date Gordon Roldan DO [address] [place] [address], [address] [place] [address] [email or web address] PCP - General Internal Medicine 11/15/23 Additional Source Comments The information contained in this document represents components of the legal health record. It is not the complete legal health record.[facility]
== END 2025-03-31 13:30 | disposition home or self-care (01) ==
LOC: HO.HCS 12:35
PROVIDERS: Visit Provider Internal Medicine
DX: R07.2 Precordial pain (principal); R94.39 Abnormal result of other cardiovascular function study
CPT/HCPCS: 93010; 99213

== ENCOUNTER → 2025-03-31 12:34 | Outpatient (BNVA) | payer MEDICARE, OTHER, SELFPAY | PROVIDERS: Visit Provider Internal Medicine | DX: R07.2 Precordial pain (principal); R94.39 Abnormal result of other cardiovascular function study; R94.31 Abnormal electrocardiogram [ECG] [EKG]; R00.1 Bradycardia, unspecified | CPT/HCPCS: 93005; 99212 ==

== ENCOUNTER → 2025-04-05 14:53 | Outpatient (BNV) | payer MEDICARE, OTHER, SELFPAY | PROVIDERS: Visit Provider Radiology Diagnostic Radiology | DX: J98.59 Other diseases of mediastinum, not elsewhere classified (principal) | CPT/HCPCS: 71552 ==

== ENCOUNTER 2025-04-05 14:54 | Outpatient (REF) | payer MEDICARE, OTHER, SELFPAY ==
--- NOTE | ~2025-04-05 | MR_ITS ---
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 TECHNIQUE: Sagittal T2, coronal T2 and STIR, and axial T2, fat-suppressed T2, in and out of phase gradient echo T1, and fat-suppressed T1 weighted MR images of the chest were obtained. Subsequently, axial and coronal fat-suppressed T1-weighted images were obtained after the intravenous demonstration of 7.5 mm Gadavist. COMPARISON: There are no prior studies available for comparison. FINDINGS: There is a 6.4 x 4.5 x 1.7 cm nonenhancing fluid signal intensity structure in the left anterior mediastinum overlying the origin of the pulmonary artery and the ventricles. This structure conforms to the cardiac contour is. There is no mediastinal or hilar lymphadenopathy. The chest wall is unremarkable. There is no axillary lymphadenopathy. The thoracic aorta is not dilated. The visualized bones are intact. Incidental note is made of tiny cysts in the liver. MR/MR chest wo/w con IMPRESSION: 6.4 x 4.5 x 1.7 cm cystic structure in the left anterior mediastinum. 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 Electronically signed by: Michael Rajan MD 04/05/2025 03:54 PM EDT
--- OUTSIDE RECORDS SUMMARY | 2025-04-05 14:56 | XMS_ITS | Continuity of Care Document ---
Author Name [facility] Organization [facility] Care Team Providers Care Spring Encaser Name Role Phone [facility] Unavailable Unavailable Problems Combined list of problems [...] Site Reaction Lot Number CVX Code Drug Race Starter Status Comments Source FLU,3 YRS (HISTORICAL) 2000 [...] Response Date Comment Source Tobacco smoking status [facility] HISTORY OF SMOKING 09/27/2003 quit 8 years ago [facility] [place] [place] [facility] History of tobacco use QUIT TOBACCO USE > 7 YEARS AGO 09/27/2003 quit 8 years [facility] [place] [facility] History of tobacco use NON-TOBACCO USER 07/29/2001 quit 7 years ago [facility] [place] [facility] History of tobacco use HISTORY OF SMOKING 05/27/2001 not smoked in past 5years [place] This section is an empty social history section. DoD
--- OUTSIDE RECORDS SUMMARY | 2025-04-05 14:57 | XMS_ITS | Clinical Summary ---
Author Organization [facility] Address [address] [place] [id number] Phone Care Team Providers Care Electron Beam Photo Mask Maker Name Role Phone Gordon Roldan Primary Care Provider [phone] Encounters Date Type Department Care Team Description 02/24/2025 3:00 PM EDT - 02/24/2025 11:59 PM EDT Hospital Encounter [facility] Laboratory [address] [place] [address] Dominick Jones PA Discharge Disposition: Home or Self Care 02/24/2025 Transcribe Orders [facility] Laboratory [address] [place] [address] Dominick Jones PA Acute dermatitis (Primary Dx) [...] EDT) ALT 24 0 - 40 U/L [facility] Blood 02/24/2025 3:26 PM EDT 02/24/2025 3:36 PM EDT Dominick OSHEA LAB BLOOD ORDERABLE S Final Result Performing Organization Address [facility]/ZIP Co de Phone Number [address] [address] * Aspartate aminotransferase (AST) (02/24/2025 3:26 PM EDT) AST 27 0 - 37 U/L [facility] Blood 02/24/2025 3:26 PM EDT 02/24/2025 3:36 PM EDT Dominick OSHEA LAB BLOOD ORDERABLE S Final Result Performing Organization Address [facility]/ZIP Co de Phone Number [address] [address] from Last 3 Months Insurance MEDICARE PART A & B [facility] MEDICARE SUPPLEMENT MEDICARE PART A & B [facility] MEDICARE SUPPLEMENT MEDICARE PART A & B [facility] MEDICARE SUPPLEMENT MEDICARE PART A & B [facility] MEDICARE SUPPLEMENT MEDICARE PART A & B [facility] MEDICARE SUPPLEMENT MEDICARE PART A & [facility] SUPPLEMENT Care Teams Electron Beam Photo Mask Maker Relationship Specialty Start Date End Date Gordon Roldan DO [address] [place] [address], [address] [place] [address] [email or web address] PCP - General Internal Medicine 11/15/23 Additional Source Comments The information contained in this document represents components of the legal health record. It is not the complete legal health record.[facility]
--- OUTSIDE RECORDS SUMMARY | 2025-04-05 14:57 | XMS_ITS | Clinical Summary ---
Author Organization [facility] Address [address] [place] [address] Care Team Providers Care Cosmetics Counter Manager Name Role Phone System, Provider Not In [...] topic Insurance MEDICARE PART A & B [facility] Care Teams Cosmetics Counter Manager Relationship Specialty Start Date End Date System, Provider Not In PCP - General 12/10/23
== END 2025-04-05 14:55 | disposition home or self-care (01) ==
LOC: HO.MRI 14:54
PROVIDERS: Visit Provider Internal Medicine
DX: E32.8 Other diseases of thymus (principal)
CPT/HCPCS: 71552; A9585